=== PATIENT | female | born 1990 | race Caucasian/White ===

== ENCOUNTER 2016-09-02 19:48 | Emergency (ER) | payer OTHER ==
[2016-09-02 19:56] VITALS: RESP 16; TEMP 98.2
--- NOTE | 2016-09-02 20:19 | EDPHY ---
[id number] CHIEF COMPLAINT: RLQ pain. HISTORY OF PRESENT ILLNESS: The patient is a 26-year-old female who presents with RLQ for the past few days. Sudden onset of right lower quadrant pain 2 days ago, the pain has been waxing and waning since then. She was seen at [facility] and sent to the ED for ultrasound for suspected ovarian cyst. At [facility] her WBC was 10 and test negative. She has a history of ovarian cyst and reports that this feels the same. No vomiting, diarrhea, fever , vaginal discharge, nausea. LMNP August 19. REVIEW OF SYSTEMS: A complete 10-point review of systems was performed and is negative except for those items mentioned in the HPI. (Delisa Pollack) Past Medical/Surgical History: Ovarian cyst. (Delisa Pollack) Social History: Nonsmoker. (Delisa Pollack) Physical Exam: General Appearance: Alert, pleasant Eyes: Pupils equal and round, no conjunctival pallor ENT, Mouth: Mucous membranes moist Neck: Normal inspection Respiratory: Lungs are clear to auscultation Cardiovascular: Regular rate and rhythm Gastrointestinal: Abdomen is soft, right sided pelvic tenderness Neurological: A&O, nonfocal, normal gait Skin: Warm and dry Extremities: Normal inspection Psychiatric: Mood and affect normal (Delisa Pollack) Constitutional: Initial Vital Signs Temperature (C) 36.8 C 09/02/16 19:54 Heart Rate 66 09/02/16 19:54 Respiratory Rate 16 09/02/16 19:54 Blood Pressure 117/72 09/02/16 19:54 O2 Sat (%) 98 09/02/16 19:54 O2 Delivery Mode Room Air Allergies/Adverse Reactions: No Known Allergies Allergy (Unverified 09/02/16 19:53) Home Medications: Medication Instructions Recorded NK [No Known Home Meds] 09/02/16 Medical Decision Making ED Course/Re-evaluation: Ultrasound of the pelvis The results of the study are shows good blood flow to both ovaries, there is a 4 cm septated right ovarian cyst otherwise unremarkable ultrasound. I discussed the results of this study with the radiologist Dr. Gong (Oseas Oconnor) Pelvic ultrasound ordered. Signed over to Dr. Oconnor at shift change, ultrasound pending. I do not suspect appendicitis in this patient. (Knifley,Delisa S) Differential Diagnosis: Differential diagnosis includes though it is not limited to ectopic , ovarian cyst, ovarian torsion, PID, UTI, appendicitis. (Delisa Pollack) Departure - Departure Disposition: Home, Routine, Self-Care Clinical Impression: Ovarian cyst Instructions: Ovarian Cyst (ED) Additional Instructions: Take 600mg Ibuprofen every 6-8 hours as needed for pain. Call Dr. Rausch, VASCULAR NURSE (or your own VASCULAR NURSE) tomorrow to set up a follow up appointment. Return to the emergency department if you experience serious worsening of condition. Referrals: Juhi Lang MD [Primary Care Provider] - As per Instructions Brooke Rausch MD [Medical Doctor] - As per Instructions Report Scribed for: Delisa Pollack Report Scribed by: Andi Rodriguez Date of Report: 09/02/16 Time of Report: 20:15 Physician Review and Approval Statement: 09/02/16 20:15 Portions of this note were transcribed by a medical reviewer. I personally performed a history, physical exam, medical decision making, and confirmed accuracy of information the transcribed note. (Delisa Pollack)
[2016-09-02 20:29] LABS: COLOR PALE YELLOW; LEUKOCYTE ESTERASE,URINE NEGATIVE (NEGATIVE); NITRITE,URINE NEGATIVE (NEGATIVE)
[2016-09-02 20:48] LABS: BACTERIA TRACE /hpf (NONE SEEN); RBC,URINE 25-50 /hpf (0-3)
--- NOTE | 2016-09-02 21:41 | US ---
Pelvic Ultrasound (Transabdominal and Endovaginal) with color flow and spectral Doppler History: Right lower quadrant pain. Findings: The pelvis was first examined through a mildly distended bladder from TRANSABDOMINAL approach. UTERUS: Size: 6.2 x 4 x 5.6 cm in longitudinal, AP, and transverse projections. Orientation: Anteflexed. Uterine Masses: None seen. Endometrium: Not well delineated. ADNEXA: There appears to be a dominant complex cystic structure in the right adnexa. The pelvis was then evaluated from ENDOVAGINAL approach after the bladder was emptied to better evalu ate the uterus and adnexa. UTERUS: Orientation: Anteverted. Masses: None. Endometrium: Normal measuring 4-5 mm in thickness. ADNEXA: Within the right ovary there is a dominant septated cyst that measures 4.5 x 4.1 x 3.7 cm. Sm all follicles are seen associated with the left ovary. Right ovary size: 4 x 4.5 x 4.5 cm Left ovary size: 2.1 x 2.9 x 2.3 cm Color flow and spectral Doppler: Normal color flow imaging with normal Doppler waveform bilaterally. Free fluid: None. Other findings: None. Impression: 1. Normal-appearing uterus and left ovary. 2. Septated cyst right ovary. Clinical follow-up suggested. These findings were discussed by telephone with Dr. Luis M Peña at 2138hrs.
[2016-09-02 21:58] VITALS: BP 110/76; PULSE 76; O2SAT 96
== END 2016-09-02 21:58 | disposition home or self-care (01) ==
DX: N83.201 Unspecified ovarian cyst, right side (principal)

== ENCOUNTER 2018-04-23 12:00 | Inpatient (IN) | payer OTHER ==
[2018-04-23 12:55] LABS: PLATELET COUNT 258 10^3/uL (150-400)
--- NOTE | 2018-04-23 13:23 | EDPHY ---
H & P Stated Complaint: SI Time Seen by Provider: 04/23/18 12:19 HPI/ROS: CHIEF COMPLAINT: Suicidal ideation M1 HISTORY OF PRESENT ILLNESS: 28-year-old female history of anxiety arrives via police on an M1 hold complaining suicidal ideation. She was seen at [facility] and placed on M1 hold. States that last evening she tightened a rope around her neck while she was lying in bed, tightened until she lost consciousness. She was not hanging however. She regained consciousness a period thereafter. She has no complaints of pain or discomfort. Denies cutting behavior. Denies alcohol or drug use. Denies hallucination. PRIMARY CARE PROVIDER: REVIEW OF SYSTEMS: 10 systems reviewed and negative with the exception of the elements mentioned in the history of present illness PAST MEDICAL & SURGICAL HISTORY: Anxiety. SOCIAL HISTORY: Denies acute alcohol or drug use PHYSICAL EXAM (Prior to examination, patient consented to physical exam, hands were washed and my usual and customary physical exam procedures followed) 1) GENERAL: Well-developed, well-nourished, alert and oriented. Appears to be in no acute distress. 2) HEAD: Normocephalic, atraumatic 3) HEENT: Pupils equal, round, reactive to light bilaterally. Sclera anicteric. Nasopharynx, oropharynx, clear, no lesions. Moist Mucous membranes. Ears bilaterally with normal tympanic membranes. No stridor. No petechiae 4) NECK: Full range of motion, no meningeal signs. No crepitus. No ligature alvarez. No discoloration. No ecchymosis. No erythema. No tenderness. Trachea nontender. No petechiae 5) LUNGS: Clear auscultation bilaterally, no wheezes, no rhonchi, no retractions. 6) HEART: Regular rate and rhythm, no murmur, no heave, no gallop. 7) ABDOMEN: No guarding, no rebound, no focal tenderness, negative McBurney's, negative Garza's, negative Rovsing's, negative peritoneal sign, 8) MUSCULOSKELETAL: Moving all extremities, no focal areas of tenderness, no obvious trauma. No peripheral edema or discoloration. 9) BACK: No CVA tenderness, no midline vertebral tenderness, no fluctuance, no step-off, no obvious trauma, no visual or palpable abnormality. 10) SKIN: No rash, no petechiae. 11) Psychiatric: Patient is oriented X 3, there is no agitation. DIFFERENTIAL DIAGNOSIS: In no particular order including but not limited to suicidal ideation, homicidal ideation, tracheal fracture , vascular injury - Personal History LMP (Females 10-55): Now - Medical/Surgical History Hx Asthma: No Hx Chronic Respiratory Disease: No Hx Diabetes: No Hx Cardiac Disease: No Hx Renal Disease: No Hx Cirrhosis: No Hx Alcoholism: No Hx HIV/AIDS: No Hx Splenectomy or Spleen Trauma: No Other PMH: denies - Social History Smoking Status: Never smoked Constitutional: Initial Vital Signs Temperature (C) 36.8 C 04/23/18 12:11 Heart Rate 58 L 04/23/18 12:11 Respiratory Rate 16 04/23/18 12:11 Blood Pressure 129/89 H 04/23/18 12:11 O2 Sat (%) 96 04/23/18 12:11 O2 Delivery Mode Room Air Allergies/Adverse Reactions: No Known Allergies Allergy (Unverified 09/02/16 19:53) Home Medications: Medication Instructions Recorded NK [No Known Home Meds] 09/02/16 Medical Decision Making ED Course/Re-evaluation: I have evaluated the patient. On exam she has no signs of trauma whatsoever, no tenderness, no stridor, no dysphagia, no tenderness to palpation to her neck. I do not think that imaging of her neck is currently indicated. Discussed this with secondary supervising position Dr. Telles who concurs 1:53 p.m.: Patient accepted for admission [address] physician [address]. Jacome. EMTALA paperwork completed - Data Points Laboratory Results: Laboratory Results 04/23/18 12:09 04/23/18 12:09 04/23/18 04/23/18 04/23/18 12:20 12:09 12:09 WBC 7.10 10^3/uL 10^3/uL (3.80-9.50) RBC 4.64 10^6/uL 10^6/uL (4.18-5.33) Hgb 15.2 g/dL g/dL (12.6-16.3) Hct 44.5 % % (38.0-47.0) MCV 95.9 fL fL (81.5-99.8) MCH 32.8 pg pg (27.9-34.1) MCHC 34.2 g/dL g/dL (32.4-36.7) RDW 12.2 % % (11.5-15.2) Plt Count 258 10^3/uL 10^3/uL (150-400) MPV 11.2 fL fL (8.7-11.7) Neut % (Auto) 50.7 % % (39.3-74.2) Lymph % (Auto) 38.0 % % (15.0-45.0) [place] % (Auto) 8.5 % % (4.5-13.0) Eos % (Auto) 2.0 % % (0.6-7.6) Baso % (Auto) 0.7 % % (0.3-1.7) Nucleat RBC Rel Count 0.0 % % (0.0-0.2) Absolute Neuts (auto) 3.60 10^3/uL 10^3/uL (1.70-6.50) Absolute Lymphs (auto) 2.70 10^3/uL 10^3/uL (1.00-3.00) Absolute Monos (auto) 0.60 10^3/uL 10^3/uL (0.30-0.80) Absolute Eos (auto) 0.14 10^3/uL 10^3/uL (0.03-0.40) Absolute Basos (auto) 0.05 10^3/uL 10^3/uL (0.02-0.10) Absolute Nucleated RBC 0.00 10^3/uL 10^3/uL (0-0.01) Immature Gran % 0.1 % % (0.0-1.1) Immature Gran # 0.01 10^3/uL 10^3/uL (0.00-0.10) Sodium 139 mEq/L mEq/L (135-145) Potassium 4.1 mEq/L mEq/L (3.3-5.0) Chloride 103 mEq/L mEq/L (97-110) Carbon Dioxide 26 mEq/l mEq/l (22-31) Anion Gap 10 mEq/L mEq/L (8-16) BUN 11 mg/dL mg/dL (7-23) Creatinine 0.7 mg/dL mg/dL (0.6-1.0) Estimated GFR > 60 Glucose 89 mg/dL mg/dL (70-100) Calcium 9.7 mg/dL mg/dL (8.5-10.4) Urine Opiates Screen NEGATIVE (NEGATIVE) Urine Barbiturates NEGATIVE (NEGATIVE) Ur Phencyclidine Scrn NEGATIVE (NEGATIVE) Ur Amphetamine Screen NEGATIVE (NEGATIVE) U Benzodiazepines Scrn NEGATIVE (NEGATIVE) Urine Cocaine Screen NEGATIVE (NEGATIVE) U Marijuana (THC) Screen NEGATIVE (NEGATIVE) Departure - Departure Disposition: [facility] IP Clinical Impression: Attempted suicide, Suicidal ideation, Severe major depression Referrals: NONE *PRIMARY CARE P,. [Primary Care Provider] - As per Instructions
--- NOTE | 2018-04-23 14:50 | ASMTTCLDSP ---
TLC Discharge Disposition Disposition: Answers: Admit Discharge Concerns/Recommendations: Notes: In consultation with [facility] ED physician, Karolyn Telles MD and on-call psychiatrist, Jabier Jacome MD, both concurred that pt appears to meet 27-65 criteria requiring psychiatric hospitalization as pt appears to be at risk of harm to self due to a mental illness condition. Pt was given the 3N prohibited belongings list while in the ED. Was patient given the Answers: Yes Inpatient Behavioral Health Prohibited Belongings List while in the ED? For inpatient Jabier Jacome MD admission, the following psychiatrist agreed to accept patient for admission to Behavioral Health ([facility]): Type of Hold: Answers: M1/72-hour Hold Hold initiated by: Answers: Other Notes: [facility] Date Signed: 04/23/2018 02:49 PM Electronically Signed By:Kayleen Paz
--- NOTE | 2018-04-23 15:34 | GHP ---
DATE OF ADMISSION: 04/23/2018 CHIEF COMPLAINT: Increased anxiety and suicidality. 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 She states she has been having increased anxiety recently. Last night, she put a rop e around her neck while in bed and tightened until she felt faint and she think she lost consciousnes s. She woke up and denied any problems with neck pain, chest pain, or shortness of breath. She idalmis es any recent drug or alcohol use. She has had no auditory or visual hallucinations. She denies chelsey icidality. In the emergency department, she is evaluated by behavioral health team and she will be admitted to [facility] behavior health unit on for further evaluation and management. PAST MEDICAL HISTORY: Anxiety and depression. MEDICATIONS: Include p.r.n. use of gabapentin, Xanax, lorazepam, and Adderall. 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 She is originally from [facility]. She denies alcohol, tobacco, or illicit drug use. FAMILY HISTORY: Positive for anxiety and depression in her dad and other paternal relatives. REVIEW OF SYSTEMS: A 10-point review of systems was performed and is negative except as per HPI. OBJECTIVE: VITAL SIGNS: Temperature is 36.8, blood pressure 129/89, heart rate 58, respiratory rate 16. She is 96% on room air. GENERAL: Patient is awake, alert, and oriented, in no acute distress. HEENT: Head is atraumatic, normocephalic. Pupils equal, round, and reactive to light. Extraocular muscles intact. Oropharynx clear. Mucous membranes are moist. NECK: Supple. There is no evidence of bruising or rope alvarez. HEART: Regular rate and rhythm without murmur. LUNGS: Clear to ausculta tion bilaterally. ABDOMEN: Soft, nondistended, nontender. Normoactive bowel sounds. EXTREMITIES: Without cyanosis, clubbing, or edema. NEUROLOGIC: Grossly nonfocal. PSYCH: Her affect is normal. LABORATORY DATA: CBC is completely normal. Basic metabolic panel also normal. Urine drug screen co mpletely negative. ASSESSMENT/PLAN: The patient is a 28-year-old female with history of anxiety and depression who pres ents to the emergency department after a suicide attempt. She is deemed medically stable and will be admitted to the inpatient Behavioral Health Unit for further psychiatric stabilization. I do not montalvo spect any other underlying medical conditions. Further management per the primary psychiatric team. /[id number]/MODL
[2018-04-23] MEDS ORDERED: MAG HYDROX/AL HYDROX/SIMETH 30 ML UDCUP PO PRN (17:18)
[2018-04-23] MEDS ORDERED: NICOTINE POLACRILEX 2 MG GUM B PRN (17:18)
[2018-04-23] MEDS ORDERED: LORazepam 0.5 MG TAB PO PRN (17:18)
[2018-04-23] MEDS ORDERED: MAGNESIUM HYDROXIDE 30 ML UDCUP PO PRN (17:18)
[2018-04-23] MEDS ORDERED: ACETAMINOPHEN 325 MG TAB PO PRN (17:22)
--- NOTE | 2018-04-23 17:55 | ASMTTLCEVL ---
TLC Evaluation - Basic Information Evaluation Start Date and 04/23/2018 01:30 PM Time Hospital Status Answers: M1 Hold 72-hr M1 Hold Start Date 04/23/2018 11:19 AM and Time Patient statement Notes: " I've just been feeling really sad and scared and I just don't want to be alive. This past week, I've had plans but haven't followed through." Narrative Notes: Pt is a 28 year old female who presented to [facility] Ed with [place] police on a M1 after she presented to [facility] today complaining of suicidal ideation and worsening depression. Last night, pt tied a rope around her neck in a suicide attempt but lost consciousness. Pt stated, " I feel really stupid but my boyfriend broke up with me a couple weeks ago and it brought on a wave of sadness. I have past trauma and I'm just afraid something will happen again." Pt stated she has been feeling suicidal off and on since high school and states she has difficulty talking to people about how she is feeling. Pt stated her family does not know what is going on with her and she states she feels like she has to be the one "who has it together."Pt states she believes if her parents knew how she was feeling, they would be supportive towards her. Pt reports in the past, her social responsibilities and her family have stopped her from going through with committing suicide but now she does not care as much about those responsibilities. Diagnosis History Notes: Pt has a hx of depression and anxiety. Prior suicide attempts Notes: Pt stated she has had one suicide attempt in [place] by OD on pain killers but she was not seen in the hospital for it. Prior hospitalizations Notes: None reported. Treatment Responses Notes: N/A History of violence Notes: Pt denies any Hi. Therapist: Maria G Psychiatrist: Porfirio Bai Medications (name, dosage, route, freq uency) Notes: Gabapentin 100 mg PRN Xanax .25 PRN Adderral 2.5 mg ( pt stated she rarely takes this) Lorazepam (dose unk) Pt stated she does not take any of these meds consistently. Allergies/Reaction Notes: Nka Sleep Notes: Pt stated she sleeps very well. Appetite Notes: Pt reports a decrease in appetite. Medical/Surgical history Notes: Pt reported a hx of 6 previous concussions. Substance use history (frequency, intensity, his tory, duration) Notes: Pt denied any drug use. Pt reports drinking 1-2 alcoholic beverages a week. Utox negative. Bal .0. Family composition Notes: Pt's parents live in [place]. Pt has 1 younger sister. Family psychiatric/substance abuse history Notes: Pt reported her father had a hx of depression and anxiety. Pt stated, " I think my sister has something similar." Pt also reported that it's possible her paternal uncle may have attempted suicide as her parents mentioned that he drank bleach at one point. Developmental history Notes: Pt grew up in [place] and moved to [place] 2 years ago. Pt denied any hx of ADD/ADHD. Pt reported 1 concussion in [place], no LOC. Pt denied any childhood abuse. Abuse concerns Answers: None Marital status/children Notes: Unmarried. No children. Living situation Notes: Pt lives in [place] with roommates. Sexual history/orientation Notes: Heterosexual. Peer support/family strengths Notes: " Pt stated, " I have a lot of friends but I'm not really close with them maybe 1 or 2." Education level/history Notes: Pt has a MA degree in [employer] and is currently working on her Ph.D in [employer]. 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 Notes: None Legal Notes: Pt denied any legal hx. Yarsani/Spiritual Notes: None that would intefere with tx. Leisure Notes: Pt enjoys hiking, reading, swimming and bike rides. Collateral Notes: None Patient's strengths Answers: Intelligent (Please select at least TWO strengths): Motivated for Treatment Willingness TLC Evaluation - Mental Status Exam Appearance: Answers: Appropriate Clean Eye Contact: Answers: Good/Direct Mood: Answers: Depressed Sad Affect: Answers: Sad Tearful Behavior: Answers: Cooperative Crying Speech: Answers: Relevant Logical Clear Thought Process: Answers: Organized Oriented Alert Insight: Answers: Good Judgement: Answers: Fair Depression Answers: Crying Spells Signs/Symptoms: Diminished Interest Hopelessness Sad Mood Anxiety Signs/Symptoms Answers: Generalized Anxiety Hallucinations: Answers: None Pt reported to have Answers: Yes suicidal/self-injuring ideation/behavior? Pt reported to be making Answers: Yes suicidal/self-injuring threats? Pt reported to have Answers: No aggression/assault ideation/behavior? Pt exhibits inability to Answers: No care for self/grave disability? Ideation/behavior is Answers: Yes chronic? Patient has a specific Answers: Yes plan? Pt has access to means to Answers: Yes execute the plan? Ideation involves Answers: Yes serious/lethal intent? Ideation has Answers: No delusional/hallucinatory content? History of serious Answers: No physical harm to self/others while in treatment setting? TLC Evaluation - Suicide/Homicide Risk Suicide Risk Factors: Answers: < 20 or > 40 Years of Age Anxiety/Panic, Severe Flat Affect Hopelessness Major Depression Prior Suicide Attempt(s) Homicide/violence risk Answers: None factors: Current Suicidal Answers: Yes Ideation? Current Suicidal Ideation Answers: Yes in the Past 48 Hours? Current Suicidal Ideation Answers: Yes in the Past Month? Current Suicidal Answers: Yes Ideation, Worst Ever? Suicide Internal Answers: Absence of Psychosis Protective Factors: Suicide External Answers: None Protective Factors: Ranking of patient's Answers: Severe suicidal risk: Ranking of patient's Answers: Low homicidal risk: TLC Evaluation - Wrap-up AXIS I Diagnosis (include DSM-V and ICD-10 codes), must also be entered in [employer], which is the source of truth. Notes: Major Depressive Disorder, recurrent, severe 296.33 (F33.2) Generalized Anxiety Disorder 300.02 (F41.1) Evaluation End Date and 04/23/2018 02:45 PM Time (HH:THAD): Date Signed: 04/23/2018 05:55 PM Electronically Signed By:Kayleen Paz
--- NOTE | 2018-04-24 08:39 | PDMN ---
Medical Necessity Medical necessity: Pt meets inpt criteria per MD order and [facility] [id number],Major Depressive Disorder, Adult: Inpatient Care, 3 days. 28 y/o presented to ED on M1 Hold after suicide attempt, admitted w/major depressive disorder, recurrent, severe and generalized anxiety disorder requiring inpt psychiatric hospitalization.
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
--- NOTE | 2018-04-24 09:24 | ASMTBHMTP ---
Master Treatment Plan Master Treatment Plan Answers: Depressed Mood with for: Suicidal Ideation Date: 04/24/2018 Diagnosis on Admission: Major Depressive Disorder Expected length of stay: 3-5 Days Reason for admission: Notes: Per TLC evaluation - Pt. is a 28 year old female who presented to [facility] ED with [place] police on an M1 after she presented to [facility] today complaining of suicidal ideation and worsening depression. Last night, pt. tired a rope around her neck in a suicide attempt but lost consciousness. Pt. stated, "I feel really stupid but my boyfriend broke up with me a couple weeks ago and it brought on a wave of sadness. I have past trauma and I'm just afraid something will happen again". Pt. stated she has been feeling suicidal off and on since high school and states she has difficult talking to people about how she is feeling. Pt. stated her family does not know what is going on with her and she states she feels likes she has to be the one "who has it together". Pt. states she believes if her parents knew how she was feeling, they would be supportive towards her. Pt. reports in the past, her social responsibilities and her family have stopped her from going through with committing suicide but now she does not care as much about those responsibilities. Patient's stated presenting problems: Notes: For the past week or so been having suicidal thoughts, trying to act on them a couple of times. Went to see pt's therapist and was told to come into the hospital. Patient's goals for treatment: Notes: Find a medication that works for me Patient's strengths: Notes: Very compassionate and very driven. Identify supports outside of hospital: Notes: Friends and family Discharge criteria: Notes: Suicidal ideation will resolve and patient will have a plan to safely manage recurrent suicidal ideation. 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
[2018-04-24] MEDS ORDERED: ARIPiprazole 5 MG TAB PO ONE (13:18)
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
[2018-04-24] MEDS: PORTIA PO SCH (14:45)
[2018-04-25] MEDS: PORTIA PO SCH (09:21)
[2018-04-25] MEDS: ARIPiprazole 5 MG TAB PO SCH (09:21)
--- NOTE | 2018-04-25 14:38 | ASMTCMCOM ---
CM Note CM Note Notes: Pt. stated she is "feeling down", adding "not sure why". Pt. reports no issues with her medications, adding they maybe the reason she is feeling low. Pt. reports sleeping "okay". Pt. stated she is eating well and has attended all of the groups. Pt. stated she is a "little stressed about [staying the weekend]". Pt. 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 Pt. denied SI, HI, AVH and paranoia. Pt. requested AG. notified. Pt. presents as alert, calm, sitting on her bed, good eye contact, and with a mostly pleasant demeanor. Staff report pt. sleeping 9 hours and being medication complaint. Date Signed: 04/25/2018 02:37 PM Electronically Signed By:Irma Souza
--- NOTE | 2018-04-25 16:39 | SOAPPROG ---
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 Patient recently broke up with BF. Plan: 04/25/18 16:35 1. Started on Abilify. Denies any SE's, no physical complaints. 2. Patient has f/u appts with providers next week. 3. Patient would like to d/c on Friday. 4. Sign in voluntary. Subjective: Patient denies any physical complaints after starting on Abilify. However, she says she feels "more tired" and "down" today, but isn't sure whether it has anything to do with new medication. She claims she felt "better" yesterday, but her mood dipped a "little bit" today. She denies feeling sad or depressed, and denies any SI/HI. She agrees to continue on current medication and f/u with providers at after d/c. Objective: Vital Signs Temp Pulse Resp BP Pulse Ox 36.8 C 86 14 108/61 97 04/25/18 06:00 04/25/18 06:00 04/25/18 06:00 04/25/18 06:00 04/25/18 06:00 MSE: Affect: Euthymic, smiling Mood: "Down" TP: Linear TC: Denies SI/HI Perception: No AH/VH Insight/Judgment: Fair - Time Spent With Patient Time Spent With Patient: 15" - Pending Discharge Pending Discharge Within 24 Hours: No Pending Discharge Within 48 Hours: Yes Pending Discharge Date: 04/27/18 (Likely to d/c on Friday) Pending Discharge Time: 11:00 ICD10 Worksheet Patient Problems: Problems Problem Status Onset Attempted suicide Acute Severe major depression Acute Suicidal ideation Acute
[2018-04-26] MEDS: PORTIA PO SCH (08:35)
[2018-04-26] MEDS: ARIPiprazole 5 MG TAB PO SCH (08:36)
--- NOTE | 2018-04-26 16:49 | SOAPPROG ---
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 Patient recently broke up with BF. Plan: 04/25/18 16:35 1. Started on Abilify. Denies any SE's, no physical complaints. 2. Patient has f/u appts with providers next week. 3. Patient would like to d/c on Friday. 4. Sign in voluntary. PLAN: 04/26/18 16:44 1. Tolerating Abilify well. Agrees to continue this med after d/c. 2. MOC visited on Friday. She wanted to know if patient could see in-network providers not affiliated with . 3. Patient has f/u with CM through [facility] on campus. 4. Patient noted improved mood today. 5. Agreed to sign in voluntarily. Would like to d/c on Friday. Subjective: MOC visited patient on Friday. MOC wants to explore option for in-network providers in community not affiliated with . Patient says she is OK with seeing CM, therapist and prescribes through [facility] and [place]. She denies any SE's from Abilify and would like to continue on this medication after d/c. She denies any thoughts, plan or intent to hurt herself or others. She says her mood is "better" than yesterday. She has not slept well the past 2 nights. She would like to d/c tomorrow b/c she has a presentation in class tomorrow afternoon. Objective: Vital Signs Temp Pulse Resp BP Pulse Ox 36.7 C 76 14 110/56 L 95 04/26/18 06:00 04/26/18 06:00 04/26/18 06:00 04/26/18 06:00 04/26/18 06:00 MSE: Affect: Euthymic Mood: "Better" TP: Linear, goal-directed TC: Denies any SI/HI Perception: Denies any AH/VH Insight/Judgment: Fair - Time Spent With Patient Time Spent With Patient: 15" - Pending Discharge Pending Discharge Within 24 Hours: Yes Pending Discharge Within 48 Hours: No Pending Discharge Date: 04/27/18 (Possible d/c on Friday) Pending Discharge Time: 11:00 ICD10 Worksheet Patient Problems: Problems Problem Status Onset Attempted suicide Acute Severe major depression Acute Suicidal ideation Acute
[2018-04-27 07:02] VITALS: BP 107/56
--- NOTE | 2018-04-27 08:00 | BDS ---
REASON FOR ADMISSION: From the ED note dated 04/23/2018, the patient was placed on an M1 hold by Luann at . The patient arrived on the M1 hold complaining of suicidal ideation. The patient had attempted prior evening to presenting to [facility] by tightening a rope around her neck while she was lying in bed, and patient reported she tightened until she lost consciousness. The trigger for the suicidal ideation and a suicide attempt was likely due to the patient recently breaking up with her boyfriend. The patient was admitted involuntarily on an M1 hold due to being a danger to herself. The patient was admitted for safety, crisis stabilization and medication management. ADMITTING DIAGNOSES: 1. Major depressive disorder, severe, refractory and treatment resistant with anxious distress. 2. Rule out borderline personality disorder .. ADMISSION PHYSICAL EXAM: The patient was seen for history and physical on 04/23, for medical clearance for inpatient behavioral health stay. The patient was medically cleared for inpatient behavioral health stay and treatment. For further details, please see history and physical dated 04/23/2018. ADMISSION LABS: CBC from 04/23/2018, within normal limits. Chemistry from , within normal limits. Hemoglobin A1c from 04/23/2018 was 4.9, within normal limits. Liver function tests from 04/23/2018, within normal limits. Fasting lipid panel from 04/25/2018, within normal limits except cholesterol was elevated at 209, LDL cholesterol calculated was elevated at 129, non HDL cholesterol was elevated at 150. Beta hCG qualitative test from 04/23, was negative. Toxicology screen from 04/23/2018, was negative for all substances of abuse. MAJOR PROCEDURES OR TESTS: None. HOSPITAL COURSE: The most prominent symptoms and behaviors while the patient was here were moderate anxiety and moderate depression. Treatment modalities utilized to target symptoms included milieu and group therapy. Abilify 5 mg p.o. daily was started to target depression symptoms, was tolerated with no report of side effects and with fair response. The patient has improved considerably with no signs of psychiatric symptoms and no psychiatric symptoms expressed. The patient reports she has improved since admission. States to be in stable condition. Feels safe to discharge and she contracts for safety. The patient's response to treatment was good. There were no adverse or unexpected results of treatment. The patient was safe throughout her stay, active in treatment, attended and engaged in groups, and was appropriate with staff and other patients. The patient met with treatment team prior to discharge to assess readiness to discharge and reviewed discharge plan. The treatment team consensus is the patient is in stable condition, has a safe discharge plan and is ready to discharge today. CONDITION AT DISCHARGE: Patient is in stable condition and is no longer a danger to self or others, and is not gravely disabled due to mental illness. Patient is no longer in need of inpatient level of care, and can be safely and effectively treated within the community. The patients level of risk at time of discharge is low. MSE: The patient is casually dressed and with good hygiene , and looks stated age. Patient is sitting, posture is upright, and position is relaxed. Patient appears awake, alert, and responds appropriately and reasonably during interview. Patient is engaged, relates well to interviewer, and emotional facial expression is appropriate to situation and changes appropriately with topic. Patient is cooperative, makes comfortable eye contact , and movements are voluntary, deliberate, coordinated, and smooth and even with no inappropriate movements. Patient makes laryngeal sounds effortlessly and shares conversation appropriately; pace of conversation is appropriate, and stream of talking is fluent; articulation is clear and understandable; word choice is effortless and appropriate for education level; completes sentences, occasionally pausing to think; rate and volume are appropriate for interview and setting. Patient reports mood as euthymic. Patients affect is stable with full variable range, congruent with mood, and appropriate to speech and circumstances. Patient has linear and logical thinking, with no loose associations, tangential thought, thought blocking, concrete thinking, or any other signs of formal thought disorder. Patient denies suicidal and homicidal ideation, and denies hallucinations and delusions. Patient appears to be a reliable historian with sound judgement and good insight into current condition. Patient has no apparent dysfunction in recent or remote memory noted , and no evidence of gross cognitive dysfunction noted at any point during the interview. DISCHARGE DIAGNOSIS: Major depressive disorder, severe, treatment resistant. CURRENT MEDICATIONS: After reviewing options risks and benefits, the patient agrees to continue Abilify 5 mg p.o. daily. The patient requests prescriptions for the following medications at time of discharge: Abilify 5 mg p.o. daily. Prescription is provided for 30 days. Prescription is reviewed with the patient at time of discharge to ensure accuracy and patient understanding. DISPOSITION: The patient left hospital independently and voluntarily with her mother after a family meeting with her mother prior to discharge. FOLLOWUP: coordinator hotels reports the appropriate outpatient follow-up services have been established and outpatient appointments have been scheduled. The patient received written instructions with times and dates of outpatient follow-up appointments. The following follow-up recommendations were provided to the patient at discharge: Continue psychotropic medications as prescribed and attend appointments as scheduled. Report any side effects to a psychiatric outpatient provider, a primary care provider, or other health home care chaplain. Address any questions or problems concerning the psychotropic medications with a psychiatric outpatient provider, a primary care provider, or other health home care chaplain. Contact [facility] or [facility], or go to the nearest emergency room, if you are ever a danger to yourself/others, or unable to care for yourself. As soon as possible, establish a routine medication management treatment with a psychiatric provider, establish routine therapy appointments, and follow-up with a primary care provider. LEGAL COURSE: The patient was admitted involuntarily on an M1 hold. The patient became voluntary during her stay. The patient discharged today independently and voluntarily. ATTITUDE AT TIME OF DISCHARGE: The patients attitude was positive at time of discharge, and patient reports looking forward to discharging today. The patient reports she feels safe to discharge, is no longer a danger to herself or others, is in stable condition, and contracts for safety. Patient states she will continue medications as prescribed, and establish medication management treatment with an outpatient provider after discharge. Patient reports she understands the information that has been provided to her, and she understands, accepts, and agrees to psychotropic medications. Patient describes internal protective factors as the coping skills she has learned while hospitalized here, and she plans to continue to practice these coping skills after discharge. Patient reports external protective factors as family and friends. FAMILY MEETING: This BUNDLE WRAPPER met with patient and patient's mother for family meeting prior to patient discharging at patient's request. Patient's mother reports patient has a safe discharge plan and is safe to discharge today. Patient's mother reports she plans to stay with patient and support her in her ongoing treatment. LABS AND STUDIES: There were no pending labs or studies at time of discharge. ADVANCE DIRECTIVES: There were no advance directives on file, and the patient was full code during this hospitalization. The following psychotropic medication treatment informed consent and recommendations were provided to the patient at time of discharge. Patient reports she understands, accepts, and agrees to the information that has been provided. PSYCHOTROPIC MEDICATION TREATMENT INFORMED CONSENT and RECOMMENDATIONS: Review nature of condition, diagnosis, and prognosis. Review nature and purpose of psychotropic medication treatment. Review type of psychotropic medications being prescribed. Review risk and benefits of psychotropic medication treatment. Review probable length of time will need to take medications. Review risk and benefits of not undergoing psychotropic medication treatment. Review alternative treatments to psychotropic medications. Review psychotropic medications contraindications, side effects, and importance of reporting any side effects to a psychiatric provider, primary care provider, or other health home care chaplain. Review importance of her asking a psychiatric provider or primary care provider any questions or problems concerning the psychotropic medications. Review importance of reporting to a psychiatric provider, primary care provider, or other health home care chaplain if she plans to or becomes . Review safety plan and the importance to contact [facility] or [facility] , or go to the nearest emergency room, if ever a danger to yourself/others, or unable to care for yourself. Recommend upon discharge to establish routine medication management treatment with a psychiatric provider, establish routine therapy appointments, and follow-up with a primary care provider. Verify patient understands, accepts, and agrees to the information that has been provided. SUICIDE ASSESSMENT FIVE-STEP EVALUATION AND TRIAGE (1) RISK FACTORS: (a) Suicidal behavior: overdose in high school (b) Current/past psychiatric disorders: major depressive disorder (c) Black symptoms: none expressed or exhibited at time of discharge (d) Family history: none (e) Precipitants/Stressors/Interpersonal: none (f) Change in treatment: discharge from psychiatric hospital (g) Access to firearms: none (2) PROTECTIVE FACTORS: (a) Internal: coping skills learned while hospitalized (b) External: family and friends (3) SUICIDAL INQUIRY: (a) Ideation: none (b) Plan: none (c) Behaviors: none; patient was safe throughout stay with no suicidal or parasuicidal behaviors (d) Intent: none (4) RISK LEVEL: Low: modifiable risk factors, strong protective factors; no suicidal or self-injurious ideation. Intervention: treatment plan to reduce symptoms including medications and therapy, provided emergency/crisis numbers, established follow-up plan, and supportive family (mother). /[id number]/MODL MTDD
[2018-04-27] MEDS: PORTIA PO SCH (08:16)
[2018-04-27] MEDS: ARIPiprazole 5 MG TAB PO SCH (08:16)
== END 2018-04-27 11:30 | disposition home or self-care (01) | DRG 885 ==
LOC: BBEH 16:10
PROVIDERS: ADMIT Psychiatry & Neurology Psychiatry; ATTEND Psychiatry & Neurology Psychiatry
DX: F33.2 Major depressive disorder, recurrent severe without psychotic features (principal); Z23 Encounter for immunization
CPT/HCPCS: 80305; G0008

== ENCOUNTER 2018-07-02 07:40 | Inpatient (IN) | payer OTHER ==
--- NOTE | 2018-07-02 07:52 | EDPHY ---
H & P Time Seen by Provider: 07/02/18 07:48 HPI/ROS: CHIEF COMPLAINT: Intentional overdose HISTORY OF PRESENT ILLNESS: 28-year-old female with depression presents after an intentional overdose. She drank an excessive amount of alcohol yesterday evening. At 0630 this morning, she took an intentional overdose of Xanax 10 tablets and an unknown quantity of gabapentin. She walked over to the [facility] inpatient [facility], asking for help. 911 was called and on EMS arrival she was drowsy, with normal vital signs. She still feels slightly intoxicated and is drowsy. Feels like "ending it all". Multiple stressors, does not want to talk about it. History of prior suicide attempts with overdose. Denies other ingestion. No recent illness. REVIEW OF SYSTEMS: complete 10 point ROS reviewed and is negative except for the noted elements in the HPI Source: Patient Exam Limitations: Clinical condition - Medical/Surgical History Hx Asthma: No Hx Chronic Respiratory Disease: No Hx Diabetes: No Hx Cardiac Disease: No Hx Renal Disease: No Hx Cirrhosis: No Hx Alcoholism: No Hx HIV/AIDS: No Hx Splenectomy or Spleen Trauma: No Other PMH: Depression, anxiety - Social History Smoking Status: Never smoked Alcohol Use: Occasionally Drug Use: None - Physical Exam Exam: General Appearance: Drowsy, slurred speech, cooperative Eyes: Pupils dilated, nystagmus present ENT, Mouth: Mucous membranes moist, no trauma Neck: normal inspection, no tenderness Respiratory: Lungs are clear to auscultation Cardiovascular: Regular rate and rhythm Gastrointestinal: Abdomen is soft and nontender, bowel sounds normal Neurological: Drowsy, non-focal exam Skin: Warm and dry, no visible wounds Extremities: normal inspection Psychiatric: Flat affect Constitutional: Initial Vital Signs Heart Rate 95 07/02/18 07:46 Respiratory Rate 19 07/02/18 07:46 Blood Pressure 107/72 07/02/18 07:46 O2 Sat (%) 98 07/02/18 07:46 O2 Delivery Mode Nasal Cannula O2 (L/minute) 2 Allergies/Adverse Reactions: No Known Allergies Allergy (Verified 07/02/18 07:46) Home Medications: Medication Instructions Recorded Mayra-28 1 each PO DAILY 04/23/18 ARIPiprazole [Abilify 2 mg (*)] 1 mg PO DAILY 07/02/18 Gabapentin [Neurontin 300 MG (*)] 300 mg PO TID PRN 07/02/18 Oran Carbonate ER [Lithobid 300 300 mg PO HS 07/02/18 mg (*)] Medical Decision Making - Diagnostics EKG Interpretation: EKG interpreted by me reveals normal sinus rhythm, rate 87, T-wave flattening, nonspecific. Interpretation: Borderline EKG ED Course/Re-evaluation: This patient presents after an intentional overdose. I placed her on an M1 hold on arrival. Decision not to give charcoal because of excessive drowsiness and risk for aspiration. Placed on a perioperative educator, will observe. Old medical record reviewed. Psychiatric admission to for suicidal ideation in April 2018 after she placed a ligature around her neck until she passed out. 1015: drowsy, awakes to tactile stimuli 11am: lethargic, awakes to painful stimuli. Given 4 hr of ED observation, now with increasing lethargy, will admit for observation. The hospitalist service was consulted for admission. Will admit to the ICU. Differential Diagnosis: Altered mental status including but not limited to hypoglycemia, infectious process, electrolyte abnormality, head injury, CVA, and intoxicants. - Data Points Laboratory Results: Laboratory Results 07/02/18 07:30 07/02/18 07:30 07/02/18 07/02/18 07/02/18 07:30 07:30 07:30 WBC 7.73 10^3/uL 10^3/uL (3.80-9.50) RBC 4.17 10^6/uL L 10^6/uL (4.18-5.33) Hgb 13.3 g/dL g/dL (12.6-16.3) Hct 39.9 % % (38.0-47.0) MCV 95.7 fL fL (81.5-99.8) MCH 31.9 pg pg (27.9-34.1) MCHC 33.3 g/dL g/dL (32.4-36.7) RDW 12.8 % % (11.5-15.2) Plt Count 272 10^3/uL 10^3/uL (150-400) MPV 10.8 fL fL (8.7-11.7) Neut % (Auto) 53.1 % % (39.3-74.2) Lymph % (Auto) 35.2 % % (15.0-45.0) Elbert % (Auto) 7.8 % % (4.5-13.0) Eos % (Auto) 2.7 % % (0.6-7.6) Baso % (Auto) 0.8 % % (0.3-1.7) Nucleat RBC Rel Count 0.0 % % (0.0-0.2) Absolute Neuts (auto) 4.11 10^3/uL 10^3/uL (1.70-6.50) Absolute Lymphs (auto) 2.72 10^3/uL 10^3/uL (1.00-3.00) Absolute Monos (auto) 0.60 10^3/uL 10^3/uL (0.30-0.80) Absolute Eos (auto) 0.21 10^3/uL 10^3/uL (0.03-0.40) Absolute Basos (auto) 0.06 10^3/uL 10^3/uL (0.02-0.10) Absolute Nucleated RBC 0.00 10^3/uL 10^3/uL (0-0.01) Immature Gran % 0.4 % % (0.0-1.1) Immature Gran # 0.03 10^3/uL 10^3/uL (0.00-0.10) Sodium 142 mEq/L mEq/L (135-145) Potassium 4.1 mEq/L mEq/L (3.3-5.0) Chloride 110 mEq/L mEq/L (97-110) Carbon Dioxide 24 mEq/l mEq/l (22-31) Anion Gap 8 mEq/L mEq/L (6-14) BUN 10 mg/dL mg/dL (7-23) Creatinine 0.9 mg/dL mg/dL (0.6-1.0) Estimated GFR > 60 Glucose 92 mg/dL mg/dL (70-100) Calcium 9.0 mg/dL mg/dL (8.5-10.4) Beta HCG, Qual NEGATIVE Salicylates < 1.0 mg/dL L mg/dL (2.0-20.0) Acetaminophen < 10 mcg/mL L mcg/mL (10-30) Ethyl Alcohol 102 mg/dL H mg/dL (0-10) Medications Given: Sodium Chloride (Ns) 1,000 mls @ 150 mls/hr IV CONT GAURAV Stop: 12/29/18 12:59 Last Admin: 07/02/18 13:12 Dose: 1,000 mls Discontinued Medications Sodium Chloride (Ns) 1,000 mls @ 0 mls/hr IV EDNOW ONE; Wide Open PRN Reason: Protocol Stop: 07/02/18 09:11 Last Admin: 07/02/18 09:17 Dose: 1,000 mls Departure - Departure Disposition: [facility] Clinical Impression: Polysubstance abuse Altered mental status Qualifiers: Altered mental status type: somnolence Qualified Code(s): R40.0 - Somnolence Condition: Serious
[2018-07-02 08:17] LABS: PLATELET COUNT 272 10^3/uL (150-400)
[2018-07-02] MEDS ORDERED: NS 1,000 ML IV ONE (09:10)
[2018-07-02] MEDS ORDERED: ONDANSETRON 4 MG/2 ML VIAL IVP PRN (12:55)
[2018-07-02] MEDS ORDERED: ACETAMINOPHEN 325 MG TAB PO PRN (12:55)
[2018-07-02] MEDS ORDERED: ONDANSETRON DISINTEGRATING 4 MG TAB PO PRN (12:55)
[2018-07-02] MEDS ORDERED: NS 1,000 ML IV SCH (13:00)
--- NOTE | 2018-07-02 15:07 | CPEKG ---
Test Reason : OPEN Blood Pressure : / mmHG Vent. Rate : 087 BPM Atrial Rate : 088 BPM P-R Int : 140 ms QRS Dur : 070 ms QT Int : 382 ms P-R-T Axes : 013 041 007 degrees QTc Int : 460 ms Sinus rhythm Borderline T wave abnormalities Confirmed by Delisa Pollack ([id number]) on 07/02/2018 3:07:16 PM Referred By: Confirmed By:Delisa Pollack
--- NOTE | 2018-07-02 15:34 | PDGENHP ---
History and Physical - Chief Complaint Overdose - History of Present Illness Cyndee Sainz is a 28 yo F with a PMHx of depression with past suicide attempt who presents to [facility] for intentional overdose. Per report, patient was experiencing recent bout of worsened depression, drank excessive amount of alcohol yesterday evening, and took an intentional overdose of Xanax (10 tablets ), gabapentin (unknown quantity) with the intent to harm herself. She then went to [facility] Inpatient psychiatric [facility] in search of help. 911 was then called and on EMS arrival, she was reported to be drowsy but with normal vital signs. Patient lethargic at the time of interview, reports she taking Xanax and gabapentin. She denies ingestion of other substances. History Information - Allergies/Home Medication List Allergies/Adverse Reactions: No Known Allergies Allergy (Verified 07/02/18 07:46) Home Medications: Mayra-28 1 each PO DAILY 04/23/18 [Last Taken 04/17/18] ARIPiprazole [Abilify 2 mg (*)] 1 mg PO DAILY 07/02/18 [Last Taken Unknown] Gabapentin [Neurontin 300 MG (*)] 300 mg PO TID PRN 07/02/18 [Last Taken Unknown ] Colver Carbonate ER [Lithobid 300 mg (*)] 300 mg PO HS 07/02/18 [Last Taken Unknown] I have personally reviewed and updated: family history, medical history, social history, surgical history - Past Medical History psychiatric history - Surgical History Reports: no pertinent surgical hx - Family History Positive for: non-pertinent - Social History Smoking Status: Never smoked Alcohol Use: Occasionally Drug Use: None Review of Systems Review of Systems: ROS: 10pt was reviewed & negative except for what was stated in HPI & below Physical Exam Physical Exam: Temp Pulse Resp BP Pulse Ox 37.3 C 89 18 92/54 L 98 07/02/18 13:49 07/02/18 13:49 07/02/18 13:49 07/02/18 13:49 07/02/18 13:49 O2 (L/minute) 2 Constitutional: uncomfortable, unkempt Eyes: anicteric sclera Ears, Nose, Mouth, Throat: dry mucous membranes Cardiovascular: regular rate and rhythym Respiratory: no respiratory distress, clear to auscultation Gastrointestinal: soft, non-tender abdomen Skin: warm Neurologic: No AAOx3 (Lethargic but awakes to verbal stimulation and answers questions approprately ) Psychiatric: depressed, flat affect Lab Data & Imaging Review 07/02/18 07:30 07/02/18 07:30 WBC 7.73 10^3/uL (3.80-9.50) 07/02/18 07:30 RBC 4.17 10^6/uL (4.18-5.33) L 07/02/18 07:30 Hgb 13.3 g/dL (12.6-16.3) 07/02/18 07:30 Hct 39.9 % (38.0-47.0) 07/02/18 07: MCV 95.7 fL (81.5-99.8) 07/02/18 07: MCH 31.9 pg (27.9-34.1) 07/02/18 07: MCHC 33.3 g/dL (32.4-36.7) 07/02/18 07: RDW 12.8 % (11.5-15.2) 07/02/18 07:30 Plt Count 272 10^3/uL (150-400) 07/02/18 07:30 MPV 10.8 fL (8.7-11.7) 07/02/18 07:30 Neut % (Auto) 53.1 % (39.3-74.2) 07/02/18 07:30 Lymph % (Auto) 35.2 % (15.0-45.0) 07/02/18 07: Greer % (Auto) 7.8 % (4.5-13.0) 07/02/18 07:30 Eos % (Auto) 2.7 % (0.6-7.6) 07/02/18 07:30 Baso % (Auto) 0.8 % (0.3-1.7) 07/02/18 07:30 Nucleat RBC Rel Count 0.0 % (0.0-0.2) 07/02/18 07:30 Absolute Neuts (auto) 4.11 10^3/uL (1.70-6.50) 07/02/18 07:30 Absolute Lymphs (auto) 2.72 10^3/uL (1.00-3.00) 07/02/18 07:30 Absolute Monos (auto) 0.60 10^3/uL (0.30-0.80) 07/02/18 07:30 Absolute Eos (auto) 0.21 10^3/uL (0.03-0.40) 07/02/18 07:30 Absolute Basos (auto) 0.06 10^3/uL (0.02-0.10) 07/02/18 07:30 Absolute Nucleated RBC 0.00 10^3/uL (0-0.01) 07/02/18 07:30 Immature Gran % 0.4 % (0.0-1.1) 07/02/18 07:30 Immature Gran # 0.03 10^3/uL (0.00-0.10) 07/02/18 07:30 Sodium 142 mEq/L (135-145) 07/02/18 07:30 Potassium 4.1 mEq/L (3.3-5.0) 07/02/18 07:30 Chloride 110 mEq/L (97-110) 07/02/18 07:30 Carbon Dioxide 24 mEq/l (22-31) 07/02/18 07:30 Anion Gap 8 mEq/L (6-14) 07/02/18 07:30 BUN 10 mg/dL (7-23) 07/02/18 07:30 Creatinine 0.9 mg/dL (0.6-1.0) 07/02/18 07:30 Estimated GFR > 60 07/02/18 07:30 Glucose 92 mg/dL (70-100) 07/02/18 07:30 Calcium 9.0 mg/dL (8.5-10.4) 07/02/18 07:30 Beta HCG, Qual NEGATIVE 07/02/18 07:30 Salicylates < 1.0 mg/dL (2.0-20.0) L 07/02/18 07:30 Acetaminophen < 10 mcg/mL (10-30) L 07/02/18 07:30 Ethyl Alcohol 102 mg/dL (0-10) H 07/02/18 07:30 EKG Interpretation: Positive for: normal sinsus rhythm Assessment & Plan Assessment: Intentional Overdose - Reports taking Xanax and Gabapentin with intent to harm herself - Hold in place - Call out to Poison Control, will f/u their recommendations - Vitals, EKG, Labs WNL on admission - ETOH 102, Salicylate and Acetaminophen negative on admission - UDS pending - Activated Charcoal was not given in ED due to concern for aspiration - Due to normal respiratory status (Fri 90's on RA), will hold off of Flumazenil - Continue supportive care with IVF, monitoring - When cleared from medical standpoint, will tx to IP psychiatric facility Depression, Uncontrolled - Management of acute overdose as above - M1 hold in place, tx to IP Psych facility when medically clear - Continue home Abilify for now Alcohol Abuse - ETOH 102 on admission - Unable to obtain frequency of drinking - Will hold off on CIWA for now, if s/s of withdrawal will initiate FEN: IVF, Regular Diet PPx: SCDs Code: FULL Dispo: Admit to Medicine
--- NOTE | 2018-07-02 16:34 | PDMN ---
Medical Necessity Medical necessity: MCG: M153 drug ingestion /OD: intentional OD Xanax and Gabapentin M1 hold hx depression, , ETOh abuse
[2018-07-02] MEDS ORDERED: LITHIUM CARBONATE ER 300 MG TAB PO SCH (21:00)
[2018-07-03] MEDS ORDERED: PORTIA PO SCH (09:00)
[2018-07-03] MEDS ORDERED: ARIPiprazole 2 MG TAB PO SCH (09:00)
[2018-07-03 12:20] VITALS: BP 125/69
--- NOTE | 2018-07-03 12:59 | PDDCSUM ---
Discharge Summary Discharge Summary: Date of Admission: 07/02/2018 Date of Discharge: 07/03/2018 Consults: Psychiatry Followup: PCP, Psychiatry Hospital Course Problem List: Intentional Overdose - Reports taking Xanax and Gabapentin with intent to harm herself - M1 Hold in place - Vitals, EKG, Labs WNL on admission - ETOH 102, Salicylate and Acetaminophen negative on admission - Activated Charcoal was not given in ED due to concern for aspiration - Due to normal respiratory status (02 sat 90's on RA), held off of Flumazenil - Supportive care with IVF, monitoring - As of this morning patient is cleared from medical standpoint, will tx to IP psychiatric facility Depression, Uncontrolled - Management of acute overdose as above - M1 hold in place, tx to IP Psych facility asbove - Continue home Abilify pending psychiatric evaluation Alcohol Abuse - ETOH 102 on admission - Held off on CIWA for now, no s/s of withdrawal Time spent on discharge was >35 minutes with >50% of time spent on patient education and counseling.
--- NOTE | 2018-07-03 13:14 | ASMTTLCEVL ---
TLC Evaluation - Basic Information Evaluation Start Date and 07/02/2018 12:00 PM Time Hospital Status Answers: M1 Hold 72-hr M1 Hold Start Date 07/02/2018 08:00 AM and Time Patient statement Notes: I have a vague memory of all that happened. I do remember waking up with this urgent feeling to escape and get out of this world and do whatever it takes to get out. Kymberly had suicidal thoughts on and off since age 16. I was thinking of using all methods to end my life. Luckily I didnt get through with all of it. After taking 3 bottles of my pills I was able to walk over the and ask for help. I dont want to kill myself anymore. Narrative Notes: Pt is a 28 year old, female, with known history of treatment resistant depression who initially presented at the [address] unit asking for help. 911 was called and upon EMS arrival, pt was drowsy, with normal vital signs. She reported she feels like ending it all. Pt was taken by EMS to [facility] ED and was placed on M1 hold by ED provider which noted: Intentional overdose of Xanax and Gabapentin in suicide attempt. BAL upon arrival at 0730 hrs was .102. Pt had a recent [facility] 3 admission from 04/23/18 to 04/29/18 after she was brought to [facility] ED with [employer] [place] police on a M1 after she presented to the [facility] clinic with suicidal ideation and worsening depression and had tied a rope around her neck in a suicide attempt and had lost consciousness. The trigger for the suicidal ideation and suicide attempt at that time was likely due to a recent break up with her boyfriend. Pt had stated, "I feel really stupid but my boyfriend broke up with me a couple weeks ago and it brought on a wave of sadness. I have past trauma and I'm just afraid something will happen again." Pt stated she has been feeling suicidal off and on since high school and states she has difficulty talking to people about how she is feeling. Pt stated her family does not know what is going on with her and she states she feels like she has to be the one "who has it together." Pt states she believes if her parents knew how she was feeling, they would be supportive towards her. Pt reports in the past, her social responsibilities and her family have stopped her from going through with committing suicide but now she does not care as much about those responsibilities. Diagnosis History Notes: Pt has a history of depression and anxiety. Pt stated she has experienced suicidal thoughts on and off since age 16. Pt was recently diagnosed with bipolar disorder and started on LIthuim. Prior suicide attempts Notes: Pt stated she has had one suicide attempt in high school by OD on pain killers but she was not seen in the hospital for it. On 04/23/18, pt tied a rope around her neck in a suicide attempt and had lost consciousness, precipitating [facility] 3 admission. Prior hospitalizations Notes: Recent [facility] hospitalization from 04/23/18 to 04/27/18. Medications upon discharge included: Abilify 5 mg po daily (given 30 day prescription). Treatment Responses Notes: Pt has history of treatment resistant depression. History of violence Notes: Pt denies any history of aggression/violence. Therapist: Maria G Psychiatrist: Porfirio Bai Medications (name, dosage, route, freq uency) Notes: Abilify 5 mg po daily; Xanax; Gabapentin, Pt stated she was briefly on LIthuim but starting a few weeks ago she was weaned from Lithuim with her last dose planned for 07/03. Pt stated with Lithuim she felt more depressed and numb to any feelings. Allergies/Reaction Notes: NKDA. Sleep Notes: Pt has experienced sporadic sleep cycle. A few months ago she was sleeping about 6-7 hours a night. After a change in her medications she was sleeping too much for her, about 10 hours a night. Recently pt. has experienced significant sleep problems only sleeping about 4 hours a night. Appetite Notes: Pt reports a decrease in appetite but she make sure she eats a decent amount of food each day. Medical/Surgical history Notes: Pt reported a history of 6 previous concussions. Substance use history (frequency, intensity, his tory, duration) Notes: Pt denied any drug use. Pt reported she typically consumes about 2 drinks a couple of times per week. BAL .102 upon arrival at 0730. UDS results were positive for benzos and alcohol. Family composition Notes: Pt's parents live in [place]. Pt has 1 younger sister. Need for family Answers: Yes participation in patient's care Family psychiatric/substance abuse history Notes: Pt reported her father had a history of taking Remeron for depression and anxiety. Pt stated, "I think my sister has something similar." Pt also reported that it's possible her paternal uncle may have attempted suicide as her parents mentioned that he drank bleach at one point. Developmental history Notes: Pt grew up in [place] and moved to [place] 2 years ago. Pt denied any hx of ADD/ADHD. Pt reported having a history of 6 concussions but no LOC. Pt reported no medical issues from these incidents. Pt denied any childhood abuse. Abuse concerns Answers: None Marital status/children Notes: Pt is single, no children. Living situation Notes: Pt lives in [place] with 3 roommates. Sexual history/orientation Notes: Active. Heterosexual. Peer support/family strengths Notes: Pt stated, "I have a lot of friends but I'm not really close with them maybe 1 or 2." Education level/history Notes: Pt has a MA degree in [employer] and is currently working on her Ph.D. in [employer]. 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 Notes: None. Legal Notes: Pt denied any legal history. Protestant/Spiritual Notes: None identified which may impact treatment. Leisure Notes: Pt enjoys hiking, reading, swimming and bike rides. Collateral Notes: Prior [facility] records. Patient's strengths Answers: Athletic (Please select at least TWO strengths): Intelligent Supportive Family TLC Evaluation - Mental Status Exam Appearance: Answers: Appropriate Eye Contact: Answers: Good/Direct Mood: Answers: Sad Affect: Answers: Anxious Apprehensive Calm Congruent w/ Mood Guarded Sad Subdued Behavior: Answers: Appropriate Guarded Impulsive Speech: Answers: Logical Clear Coherent Thought Process: Answers: Oriented Alert Intact Insight: Answers: Poor Judgement: Answers: Poor Manic Signs/Symptoms Answers: Impulsivity Mood Swings Depression Answers: Diminished Interest Signs/Symptoms: Diminished Pleasure Sad Mood Withdrawn Worthlessness Anxiety Signs/Symptoms Answers: Generalized Anxiety Hallucinations: Answers: None Current Stage of Change Answers: Relapse Pt reported to have Answers: Yes suicidal/self-injuring ideation/behavior? Pt reported to be making Answers: Yes suicidal/self-injuring threats? Pt reported to have Answers: No aggression/assault ideation/behavior? Pt reported to be making Answers: No aggression/assault threats? Pt exhibits inability to Answers: No care for self/grave disability? Ideation/behavior is Answers: Yes chronic? Patient has a specific Answers: Yes plan? Pt has access to means to Answers: Yes execute the plan? Ideation involves Answers: Yes serious/lethal intent? Ideation has Answers: No delusional/hallucinatory content? History of Answers: Yes suicidal/self-injuring ideation, behavior, or threats? History of Answers: No aggressive/assaultive ideation, behavior, or threats? History of serious Answers: No physical harm to self/others while in treatment setting? TLC Evaluation - Suicide/Homicide Risk Suicide Risk Factors: Answers: Anhedonia Bipolar Disorder Calm After Agitated Depression Cluster "B" D/O or Traits Global Insomnia Hopelessness Impulsivity Intoxication Major Depression Organized Lethal Plan Prior Suicide Attempt(s) Rapid Mood Shifts Single None Homicide/violence risk Answers: None factors: Current Suicidal Answers: No Ideation? Current Suicidal Ideation Answers: Yes in the Past 48 Hours? Current Suicidal Ideation Answers: Yes in the Past Month? Current Suicidal Answers: Yes Ideation, Worst Ever? Suicide Internal Answers: Absence of Psychosis Protective Factors: Suicide External Answers: Positive Therapeutic Protective Factors: Relationships Ranking of patient's Answers: Severe suicidal risk: Ranking of patient's Answers: Low homicidal risk: TLC Evaluation - Wrap-up BDI Total Score: 20 BDI Question #2 Score: 1 BDI Question #9 Score: 1 BSS Total Score: 12 AXIS I Diagnosis (include DSM-V and ICD-10 codes), must also be entered in [employer], which is the source of truth. Notes: Major Depressive Disorder, recurrent, severe 296.33 (F33.2) Alcohol Intoxication, with use disorder, mild 303.00 (F10.129) R/OBipolar I Disorder, current or most recent episode depressed, severe 296.53 (F31.4) R/O Borderline Personality Disorder 301.83 (F60.3) Evaluation End Date and 07/02/2018 12:30 PM Time (HH:THAD): Date Signed: 07/03/2018 01:13 PM Electronically Signed By:Karolina Chacon
--- NOTE | 2018-07-03 13:24 | ASMTTCLDSP ---
TLC Discharge Disposition Disposition: Answers: Admit Disposition Notes: Notes: In consultation with [facility] on-call Clinician, Munir Lyon, it was concurred that pt appears to meet 27-65 criteria requiring psychiatric hospitalization as pt appears to be at risk of harm to self due to a mental illness condition. Pt was given the 3[facility] prohibited belongings list while in the ED. Discharge Concerns/Recommendations: Notes: Admit to [facility] Was patient given the Answers: Yes Inpatient Behavioral Health Prohibited Belongings List while in the ED? For inpatient Munir Spencer [facility] admission, the following psychiatrist agreed to accept patient for admission to Behavioral Health ([facility]): Type of Hold: Answers: M1/72-hour Hold Hold initiated by: Answers: ED Physician Date Signed: 07/03/2018 01:23 PM Electronically Signed By:Karolina Chacon
--- NOTE | 2018-07-03 14:15 | ASMTDCNOTE ---
Case Management Discharge Discharge Order Complete? Answers: Yes Patient to Obtain Answers: Other Notes: [facility] Behavioral Health Medications Transportation Arranged Answers: [facility] Stretcher Transport will Pick (Date 07/03/2018 12:00 AM & Time) Case Management Transport Answers: Yes Notes: [facility] for [facility] Form Complete Faxed Final Orders Answers: Yes Notes: [facility] Behavioral Health Agency/Facility Transfer Answers: Yes Notes: [facility] Behavioral Health Report Printed & Faxed to Receiving Agency Family Notified Answers: No Notes: confidential Discharge Comments Notes: Patient will discharge to the [facility] Behavioral Health unit today. Transport arranged with [facility] - stretcher due to M1 hold. Nurse to nurse conference complete. [facility] behavioral [facility] No further needs. Date Signed: 07/03/2018 02:14 PM Electronically Signed By:Keara Hartman LCSW
== END 2018-07-03 14:30 | DRG 918 ==
LOC: EDUNIT# → EEVIPCON 11:42 → F2N 14:23
PROVIDERS: ADMIT Internal Medicine; ATTEND Internal Medicine
DX: T42.4X2A Poisoning by benzodiazepines, intentional self-harm, initial encounter (principal); T51.0X2A Toxic effect of ethanol, intentional self-harm, initial encounter; T43.502A Poisoning by unspecified antipsychotics and neuroleptics, intentional self-harm, initial encounter; F32.9 Major depressive disorder, single episode, unspecified; F10.10 Alcohol abuse, uncomplicated
CPT/HCPCS: 80305; G0480

== ENCOUNTER 2018-07-03 14:50 | Inpatient (IN) | payer OTHER ==
[2018-07-03] MEDS ORDERED: MAG HYDROX/AL HYDROX/SIMETH 30 ML UDCUP PO PRN (16:38)
[2018-07-03] MEDS ORDERED: LORazepam 0.5 MG TAB PO PRN ×2 (16:38→16:59)
[2018-07-03] MEDS ORDERED: MAGNESIUM HYDROXIDE 30 ML UDCUP PO PRN (16:38)
[2018-07-03] MEDS ORDERED: ACETAMINOPHEN 325 MG TAB PO PRN (16:38)
--- NOTE | 2018-07-04 09:29 | ASMTBHMTP ---
Master Treatment Plan Master Treatment Plan Answers: Depressed Mood with for: Suicidal Ideation Date: 07/04/2018 Diagnosis on Admission: Major Depressive Disorder Expected length of stay: 3-5 Days Reason for admission: Notes: Per TLC Evaluation - Pt. is a 28 year old, female, with known history of treatment resistant depression who initially presented to the [address] unit asking for help. 911 was called and upon EMS arrival, pt was drowsy, with normal vital signs. She reported she feels like ending it all. Pt. was take by EMS to [facility] ED and was placed on M1 hold by ED provider which noted: Intentional overdose of Xanax and Gabapentin in suicide attempt. BAL upon arrival at 0730 hrs was .102. Pt. has a recent [facility] admission from 04/23/18 to 04/29/18 after she was brought to [facility] ED with [place] police on a M1 after she presented to the [facility] clinic with suicidal ideation and worsening depression and had tired a rope around her neck in a suicide attempt and has lost consciousness. The trigger for the suicidal ideation and suicide attempt at that time was likely due to a recent break up with her boyfriend. Pt. had stated "I feel really stupid but my boyfriend broke up with me a couple weeks ago and it brought on a wave of sadness. I have past trauma and I'm just afraid something will happen again." Pt. stated she has been feeling suicidal off and on since high school and states she has difficulty talking to people about how she is feeling. Pt. stated her family does not know what is going on with her and she states she feels like she has to be the one "who has it together." Pt. states she believes if her parents knew how she was feeling, they would be supportive towards her. Pt. reports in the past, her social responsibilities and her family have stopped her from going through with committing suicide but now she does not care as much about those responsibilities. Patient's stated presenting problems: Notes: Pt. stated she woke up with a feeling of "needing to escape", and brought herself to [address] before being taken to the ED. Patient's goals for treatment: Notes: "Figure out what's going on with medications." "Start working towards not having this happen again". Patient's strengths: Notes: Ambitious, smart, good at pushing myself when I need to, and a really good friend Identify supports outside of hospital: Notes: Family in [place], roommates, (ex)boyfriend, and some friends Discharge criteria: Notes: Suicidal ideation will resolve and patient will have a plan to safely manage recurrent suicidal ideation. Initial disposition plan/considerations: Notes: Return home. Currently lives with three roommates Master Treatment Plan Required Signatures Psychiatrist signature: Answers: Psychiatrist: RN on-shift signature: Answers: RN: Patient signature: Answers: Patient: Date Signed: 07/04/2018 09:28 AM Electronically Signed By:Irma Souza
--- NOTE | 2018-07-04 12:15 | ASMTCMCOM ---
CM Note CM Note Notes: Pt and CC completed MTP and placed in pt's chart. Pt. stated she brought herself into the hospital when she "made a plan and started acting on it". Pt. stated she currently lives with three roommates. Pt. denied any current legal issues. Pt. stated she drinks alcohol 1-2 times a week and usually has 1-2 drinks per sitting. Pt. stated she smokes THC "very occasionally, less than once a year". Pt. denied all other substance use. Pt. stated from her previous hospitalization, pt stated Abilify was "not helpful. Pt. stated seh "appreciates all the workshops". Pt. denied SI, HI, AVH and paranoia. Pt. presents as alert, calm, tearful at times, cooperative, good eye contact, and a mostly pleasant demeanor. Staff report pt. sleeping 7 hours, pt reports 3 hours, and being medication complaint. Date Signed: 07/04/2018 12:14 PM Electronically Signed By:Irma Souza
--- NOTE | 2018-07-04 14:28 | SOAPPROG ---
SOAP Progress Note Assessment/Plan: Assessment: Plan: Objective: Vital Signs Temp Pulse Resp BP Pulse Ox 36.8 C 60 16 107/69 95 07/04/18 11:35 07/04/18 11:35 07/04/18 11:35 07/04/18 11:35 07/04/18 11:35 ICD10 Worksheet Patient Problems: Problems Problem Status Onset Major depressive disorder, severe Chronic Altered mental status Acute Polysubstance abuse Acute
[2018-07-04] MEDS: GABAPENTIN 100 MG CAP PO SCH ×2 (15:44→21:04)
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
[2018-07-04] MEDS ORDERED: LURASIDONE HCL 20 MG TAB PO SCH (21:00)
[2018-07-04] MEDS: PORTIA PO SCH (21:04)
[2018-07-05] MEDS: GABAPENTIN 100 MG CAP PO SCH ×2 (08:23→16:21)
[2018-07-05] MEDS ORDERED: GABAPENTIN 100 MG CAP PO PRN (16:37)
[2018-07-05] MEDS ORDERED: LURASIDONE HCL 20 MG TAB PO SCH (16:40)
[2018-07-05] MEDS: LURASIDONE HCL 20 MG TAB PO SCH (17:03)
[2018-07-05] MEDS ORDERED: GABAPENTIN 100 MG CAP PO SCH (21:00)
[2018-07-05] MEDS: PORTIA PO SCH (21:27)
--- NOTE | 2018-07-05 23:56 | SOAPPROG ---
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 states her primary provider has been questioning bipolar spectrum d/o has been with signif insomnia on Abilify after last d/c, then +SI on [place]. EtOH couple times per week. 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 reports 0/10 SI. worked on safety plan. Safety: Consistently denies any SI and reports no SI throughout hospitalization. Maintains that this impulsive OD scared her, she did call suicide hotline, and if with any return of SI, plans to call for help or come in to ER before engaging in any self-harm behavior. Expresses future-oriented thinking. Agrees to dispose of med bottles no longer using. Thinks she only has Gabapentin and Abilify 5mg tablets Regarding mood, pt currently feeling stable, not depressed, luke does have some anxiety about missing class in AM and upcoming family trip to [place] (due to longstanding family dynamics), but looking fwd to trip to [facility] with a friend thereafter. No other experiences of AH other than once in ER (thought heard RN say something to her) and yesterday AM. Did however admit at times experiencing brief hallucinations while drifting off to sleep (hypnagaugic). Otherwise no other AH/VH. no delusions/paranoia/IOR or other psychotic sxs. Denied racing thoughts, no irritability. Took Latuda 20mg last pm, states she was tired at bedtime and quickly fell asleep around 10-11pm. Thought and felt she slep all night b/c upon awakening, she felt well-rested and in a good mood, then checked time- 3am. Unable to fall back to sleep. [place] the regular room checks which is how she noted passing time. would read or write some then try to sleep again. Discussed options. Pt admits to being medication-averse in general, would prefer no meds, but otherwise would rather work with current meds instead of adding anything for sleep (even benadryl), and would like to try lower dose Latuda (tablet, can be split). Worries with this category med (atyp AP) that she may have insomnia like with Abilify, altho does not feel "activated" on Latuda as she did with Abilify 5mg. Agreed to try Latuda in AM and decrease to 10mg. 1st dose now. Will work with her o/p provider for further adjustments, incl slow uptitration as indicated. Again reviewed metabolic risks and EPS risks. Also agreed to call or seek treatment if any worsening of symptoms, incr depr, SI or any other symptoms. Pt consented to treatment. Was advised that this med is indicated for BMD depr and although this is not clearly her diagnosis, she states her outpt provider is strongly considering given her atypical responses to prior medications and her decr sleep, states she had hallucinations of objects moving in distance on Effexor, and felt violent towards others w/anger when on Remeron. Took Lexapro, Celexa in HS without particular recall of effect except perhaps sedated. Sleep disturbance: could be related to mood d/o, PTSD, now chronically disrupted sleep/wake cycle, adverse effect of EtOH on sleep, good sleep hygiene , medication options, CBT also avail for insomnia. Elected to increase Gabapentin to 200mg qhs scheduled ; will also leave 100mg hs prn for insomnia tonight. If beneficial, plan to continue scheduled at HS at least for 1-2 weeks until sleep cycle regulated. Discussed importance of good sleep on affect regulation and cognition. Anxiety: Reports some social and performance anxiety. Does indicate she had PTSD since trauma 1.5yr ago, and with some ongoing residual sxs of avoidance and emotional numbing, but NM/FB have resolved over past 6mo. States she has worked with [facility] for therapy, also did some EMDR, visualization ( continues to use visualization techniques as needed to go to her 'safe space'), and has tried Prazosin but BP didn't tolerate. Pt reports signif benefit from her home med of low-dose Gabapentin 100mg for her anxiety, incl social and performance anxiety tendencies. Has tried up to 200mg doses but this just makes her more tired. 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 EtOH does help incr confidence and decr anxiety. Will therefore resume scheduled Gabapentin 100mg QAM, with 200mg at HS for sleep , and use 100mg once daily prn. Still has some Gabapentin at home. EtOH: Acknowledges negative impact of EtOH on judgment, mood, behavior. States impulsive suicide attempt and her acute feelings of despair were related to her acute intoxication, and her still being intoxicated after waking up several hrs later. Has been able to abstain before. 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 Confronted on possibility of minimizing use. 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 Discussed risks and strongly advised abstinence. She admits she will try, but feels realistically she can cut out any EtOH during weekdays, and only drink max 1 on weekend day, and will choose beer instead of wine b/c drinks this more slowly. Understands risks and potential consequences if resumes any EtOH, is advised not to drink while taking meds. Declines offer of any med to potentially help EtOH use incl Antabuse or Naltrexone. States she will reconsider if not able to stick to her plan. Can also receive support services for EtOH at [facility]. Plans to reengage in therapy, recommend weekly magi with recent admission. Admits she was less Likes her therapist, who is out of town now for a month, but will be seeing someone else 07/17. Discussed IOP, and this was strongly recommended after d/c if any new blocks starting and works w/current or next semester schedule. Pt will consider, may have limitations due to her class schedule, but has several options with diff times, and states she could make some sched changes. Encouraged self-care. While in hospital, a supportive friend did visit. patient also told her parents what was going on with her. states they "seem okay" and understanding, but worries her mother may be initially sympathetic then blame which she feels mother does sometimes. However pt does recognize this and overall still feels close to her family. pt states she also will to t/w [employer] student services to talk with her grad school advisor and she herself is planning to t/w him as well. states she has been a good student and fulfills her responsibilities, so she feels he will work with her to be more flexible with her responsibilities and tasks. BDI-2=20, indicating moderate depression sxs upon admission and BSS=4 MSE: cooperative, neatly groomed, good eye contact, nml speech rate/vol, nml psychom activity. mood "fine", affect controlled, appropriate to conversation, thought process/content- linear, reality-based, expressing good insight, denied any AH/VH. Denied any SI thoughts plan or intent, and no thoughts to harm others. i/j both seem intact. A&Ox 3. IMP: Other Specified Bipolar and Related Disorder (with hx MDD episodes and insufficient hypomanic episodes) hx of major depr d/o, EtOH use d/o, unspecified r/o Borderline personality d/o hx PTSD r/o EtOH induced mood d/o s/p overdose in suicide attempt, resolved EtOH acute intoxication, resolved (in ER) PLAN: -Decr Latuda to 10mg qd and change to AM from HS. uptitrate as tolerated. -Gabapentin cont 100mg qam , incr to 200mg qhs, with 100mg prn anxiety/ insomnia. has some Gabapentin remaining at home. d/c gabapentin 100mg tid -M-1 exp today. 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 pt hoping for early d/c plan in AM prior to d/c: - contact [facility], collateral from prescriber if possible and arrange f/u appts with prescriber next avail, also confirm appt with covering therapist (pt reports her therapist is out for the month); pt would like to stay with current therapist sravano reports [facility] only allows total 20 visits/yr. would recommend increase freq of visits in the more acute post-hosp period for incr support. -advise of EtOH use and provide with substance use resources. pt states she still has list of providers in community from last hospitalization if needs. - review safety plan - provide with IOP referrals - list of CBT, DBT groups at or in community - advise pt to dispose of any pill bottles still at home and no longer prescribed, and cx any refills on such meds through pharmacy where pt fills meds. NO more xanax. states has no more and no refills as she had used them very sparingly for anxiety previously - pt agrees she can and will call crisis # or 911 or go to ER if feeling unsafe or any SI. consistently denies any SI Objective: Vital Signs Temp Pulse Resp BP Pulse Ox 36.7 C 76 14 127/65 H 96 07/05/18 06:00 07/05/18 06:00 07/05/18 06:00 07/05/18 06:00 07/05/18 06:00 - Time Spent With Patient Time Spent With Patient: 45min - Pending Discharge Pending Discharge Within 24 Hours: Yes Pending Discharge Date: 07/06/18 Pending Discharge Time: 11:00 ICD10 Worksheet Patient Problems: Problems Problem Status Onset Major depressive disorder, severe Chronic Altered mental status Acute Polysubstance abuse Acute
[2018-07-06 06:32] VITALS: BP 109/63
--- NOTE | 2018-07-06 08:33 | ASMTBHDC ---
Notes Note: Notes: CC met with ct. ahead of her discharge. Ct. reported that she is doing fine. She denied SI. 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 Ct. has a f/u appointment with her therapist Hamida on at 11:00. Date Signed: 07/06/2018 08:33 AM Electronically Signed By:Roseann Allen
[2018-07-06] MEDS: LURASIDONE HCL 20 MG TAB PO SCH (08:39)
[2018-07-06] MEDS ORDERED: GABAPENTIN 100 MG CAP PO SCH (09:00)
--- NOTE | 2018-07-06 13:23 | BDS ---
REASON FOR ADMISSION: From the psychiatric assessment and history dated 2017, the patient reported that she woke up morning with a dire sense of needing to kill herself. Reported she was very despondent, felt hopeless, and felt like she was never going to enjoy anything again. Patient was admitted for inpatient psychiatric hospitalization following a brief medical admission in the ICU after an overdose and a suicide attempt. The patient was admitted involuntarily on an M1 hold due to being a danger to herself. Patient was admitted for safety, crisis stabilization, and medication evaluation. ADMITTING DIAGNOSIS: Major depressive disorder, severe. ADMISSION PHYSICAL EXAM: Patient was seen for a history and physical on 2017, for medical clearance for inpatient psychiatric hospitalization and treatment. The patient was medically cleared for inpatient psychiatric hospitalization and treatment. For further details, please refer to history and physical dated 07/02/2018. ADMISSION LABS: CBC from 07/02/2018, within normal limits, except red blood cells were low at 4.17. BMP from 07/02/2018, within normal limits. Hemoglobin A1c from 04/23/2018, within normal limits at 4.9. Liver function from 2017, within normal limits. Lipid panel from 04/25/2018, within normal limits, except cholesterol was elevated at 209, LDL cholesterol calculated was elevated at 129, and non-HDL cholesterol was elevated at 150. TSH from 07/03/2018, was within normal limits at 1.310. Beta hCG qualitative test from 2017, was negative. Toxicology screen from 07/02/2018, was non-negative for benzodiazepines and negative for all other substances tested. Ethyl alcohol was 102. MAJOR PROCEDURES OR TESTS: Electrocardiogram 07/02/18: Sinus rhythm, borderline T wave abnormalities. QTc interval: 460 milliseconds. HOSPITAL COURSE: The most prominent symptoms and behaviors while the patient was here were reports of moderate anxiety and depression. Target symptoms during hospitalization: Depression and anxiety. Treatment modalities utilized were milieu and group therapy. Latuda 20 mg p.o. q.h.s. was started to target depression symptoms. Patient reported activation, reported she fell asleep after taking medication and woke up 2 hours later and was unable to sleep. Patient requested medication to be changed to daytime dosing. Latuda was changed to 20 mg p.o. daily, was tolerated with no report of side effects. Patient has improved considerably, with no signs of psychiatric symptoms and no psychiatric symptoms expressed at time of discharge. Patient reports she has improved since admission, states to be in stable condition, feels safe to discharge, and she contracts for safety. Patient's response to treatment was good. There were no adverse or unexpected results of treatment. The patient was safe throughout her stay, active in treatment, attended and engaged in groups, and was appropriate with staff and other patients. Patient met with the treatment team prior to discharge to assess readiness to discharge and review discharge plan. The treatment team consensus is the patient is in stable condition, has a safe discharge plan, and is ready to discharge today. CONDITION ON DISCHARGE: Patient is in stable condition and is no longer a danger to self or others, and is not gravely disabled due to mental illness. Patient is no longer in need of inpatient level of care, and can be safely and effectively treated within the community. The patients level of risk at time of discharge is low. MSE: The patient is casually dressed and with good hygiene , and looks stated age. Patient is sitting, posture is upright, and position is relaxed. Patient appears awake, alert, and responds appropriately and reasonably during interview. Patient is engaged, relates well to interviewer, and emotional facial expression is appropriate to situation and changes appropriately with topic. Patient is cooperative, makes comfortable eye contact , and movements are voluntary, deliberate, coordinated, and smooth and even with no inappropriate movements. Patient makes laryngeal sounds effortlessly and shares conversation appropriately; pace of conversation is appropriate, and stream of talking is fluent; articulation is clear and understandable; word choice is effortless and appropriate for education level; completes sentences, occasionally pausing to think; rate and volume are appropriate for interview and setting. Patient reports mood as euthymic. Patients affect is stable with full variable range, congruent with mood, and appropriate to speech and circumstances. Patient has linear and logical thinking, with no loose associations, tangential thought, thought blocking, concrete thinking, or any other signs of formal thought disorder. Patient denies suicidal and homicidal ideation, and denies hallucinations and delusions. Patient appears to be a reliable historian with sound judgement and good insight into current condition. Patient has no apparent dysfunction in recent or remote memory noted , and no evidence of gross cognitive dysfunction noted at any point during the interview. DISCHARGE DIAGNOSIS: Major depressive disorder, severe. CURRENT MEDICATIONS: After reviewing options, risks and benefits with the patient, patient agrees to continue: 1. Latuda 20 mg p.o. daily for refractory depression. 2. Gabapentin 300 mg p.o. t.i.d. p.r.n. Patient requests prescription for Latuda at time of discharge. Prescription for 30 days is provided. The patient reports she has a prescription for gabapentin and states she currently needs no other medication prescriptions. Latuda prescription is reviewed with the patient at time of discharge to ensure accuracy and patient understanding. DISPOSITION: Patient left the hospital independently and voluntarily with her friend and plans to return home. FOLLOWUP: behavioral therapy coordinator reports the appropriate outpatient follow-up services have been established and outpatient appointments have been scheduled. The patient received written instructions with times and dates of outpatient follow-up appointments. The following follow-up recommendations were provided to the patient at discharge: Continue psychotropic medications as prescribed and attend appointments as scheduled. Report any side effects to a psychiatric outpatient provider, a primary care provider, or other health senior care specialist. Address any questions or problems concerning the psychotropic medications with a psychiatric outpatient provider, a primary care provider, or other health senior care specialist. Contact [facility] or [facility], or go to the nearest emergency room, if you are ever a danger to yourself/others, or unable to care for yourself. As soon as possible, establish a routine medication management treatment with a psychiatric provider, establish routine therapy appointments, and follow-up with a primary care provider. LEGAL COURSE: Patient was admitted on an M1 hold for involuntary inpatient psychiatric hospitalization. Patient discharged today independently and voluntarily. ATTITUDE AT TIME OF DISCHARGE: The patients attitude was positive at time of discharge, and patient reports looking forward to discharging today. The patient reports she feels safe to discharge, is no longer a danger to herself or others, is in stable condition, and contracts for safety. Patient states she will continue medications as prescribed, and establish medication management treatment with an outpatient provider after discharge. Patient reports she understands the information that has been provided to her, and she understands, accepts, and agrees to psychotropic medications. Patient describes internal protective factors as the coping skills she has learned while hospitalized here, and she plans to continue to practice these coping skills after discharge. LABS AND STUDIES: There were no pending labs or studies at time of discharge. ADVANCE DIRECTIVES: There were no advance directives on file, and patient was full code during this hospitalization. The following psychotropic medication treatment informed consent and recommendations were provided to the patient at time of discharge. Patient reports she understands, accepts, and agrees to the information that has been provided. PSYCHOTROPIC MEDICATION TREATMENT INFORMED CONSENT and RECOMMENDATIONS: Review nature of condition, diagnosis, and prognosis. Review nature and purpose of psychotropic medication treatment. Review type of psychotropic medications being prescribed. Review risk and benefits of psychotropic medication treatment. Review probable length of time will need to take medications. Review risk and benefits of not undergoing psychotropic medication treatment. Review alternative treatments to psychotropic medications. Review psychotropic medications contraindications, side effects, and importance of reporting any side effects to a psychiatric provider, primary care provider, or other health senior care specialist. Review importance of her asking a psychiatric provider or primary care provider any questions or problems concerning the psychotropic medications. Review importance of reporting to a psychiatric provider, primary care provider, or other health senior care specialist if she plans to or becomes . Review safety plan and the importance to contact [facility] or [facility] , or go to the nearest emergency room, if ever a danger to yourself/others, or unable to care for yourself. Recommend upon discharge to establish routine medication management treatment with a psychiatric provider, establish routine therapy appointments, and follow-up with a primary care provider. Verify patient understands, accepts, and agrees to the information that has been provided. SUICIDE ASSESSMENT FIVE-STEP EVALUATION AND TRIAGE (1) RISK FACTORS: (a) Suicidal behavior: overdose in high school; overdose prior to this admission (b) Current/past psychiatric disorders: Major Depressive Disorder (c) Black symptoms: none expressed or exhibited at time of discharge (d) Family history: none (e) Precipitants/Stressors/Interpersonal: none (f) Change in treatment: discharge from psychiatric hospital (g) Access to firearms: none (2) PROTECTIVE FACTORS: (a) Internal: coping skills learned while hospitalized (b) External: family, friends, and future (3) SUICIDAL INQUIRY: (a) Ideation: none (b) Plan: none (c) Behaviors: none; patient was safe throughout stay with no suicidal or parasuicidal behaviors (d) Intent: none (4) RISK LEVEL: Low: modifiable risk factors, strong protective factors; no suicidal or self-injurious ideation. Intervention: treatment plan to reduce symptoms including medications and therapy, provided emergency/crisis numbers, and established follow-up plan. /[id number]/MODL [id number]
== END 2018-07-06 11:25 | disposition home or self-care (01) | DRG 885 ==
LOC: BBEH 14:50
PROVIDERS: ADMIT Registered Nurse; ATTEND Registered Nurse
DX: F32.3 Major depressive disorder, single episode, severe with psychotic features (principal)